=== PATIENT | male | born 1980 | race Caucasian/White ===

== ENCOUNTER 2016-12-08 10:01 | Emergency (ER) | payer OTHER ==
[2016-12-08 10:18] VITALS: BP 116/87; PULSE 79; RESP 16; TEMP 98.2; O2SAT 98
--- NOTE | 2016-12-08 10:25 | UCPHY ---
H & P Patient Type: Established Chief Complaint Nursing Narrative: BILAT EAR PAIN SINCE YEST, RECOVERING FROM COLD HPI/ROS: CHIEF COMPLAINT: Earache HISTORY OF PRESENT ILLNESS: 36-year-old male with a recent upper respiratory infection who reports bilateral earache, right worse than left. The pain was so severe in his right ear last night that he was unable to sleep. No drainage. No significant change in hearing. No fever. His upper respiratory infection has been present for the last 4 days. He has had mild cough, rhinorrhea, mild sore throat, and myalgias. REVIEW OF SYSTEMS: A ten point review of systems was performed and is negative with the exception of the items mentioned in the HPI. Source: Patient Exam Limitations: No limitations - Medical/Surgical History Hx Asthma: No Hx Chronic Respiratory Disease: No Hx Diabetes: No Hx Cardiac Disease: No Hx Renal Disease: No Hx Cirrhosis: No Hx Alcoholism: No Hx HIV/AIDS: No Hx Splenectomy or Spleen Trauma: No Other PMH: PMH: GOUT, SLEEP APNEA, DEPRESSION AND ANXIETY - Family History Significant Family History: No pertinent family hx - Social History Smoking Status: Never smoked Additional Social History: He works in [employer]. He does not use tobacco products. He rarely drinks alcohol. - Physical Exam Exam: General Appearance: Alert. Vital signs reviewed. Blood pressure 116/87. Eyes: Pupils equal and round, no conjunctival injection, no discharge. Anicteric. ENT, Mouth: No mastoid tenderness. Right tympanic membrane is erythematous and mildly bulging. Left tympanic membrane appears Mucous membranes are moist, no oropharyngeal erythema or edema. Neck: No lymphadenopathy, supple. normal. No meningeal signs. Respiratory: Lungs are clear to auscultation; no wheezes, rales, or rhonchi. Cardiovascular: Regular rate and rhythm; no murmur, rub, or gallop. Gastrointestinal: Abdomen is soft and nontender. Skin: Warm and dry, no rashes on exposed skin, normal color. Neurological: Alert and oriented. Moving all four extremities easily and equally. Psychiatric: Normal affect. Constitutional: Initial Vital Signs Temperature (C) 36.8 C 12/08/16 10:10 Heart Rate 79 12/08/16 10:10 Respiratory Rate 16 12/08/16 10:10 Blood Pressure 116/87 H 12/08/16 10:10 O2 Sat (%) 98 12/08/16 10:10 O2 Delivery Mode Room Air Allergies/Adverse Reactions: No Known Allergies Allergy (Verified 04/23/16 11:56) Home Medications: Medication Instructions Recorded Allopurinol 01/17/16 Colchicine 01/17/16 Amoxicillin 500 mg PO TID #21 capsule 12/08/16 Hydrocodone/APAP 5/325 [Dutton 1 - 2 tab PO Q4 PRN #10 tab 12/08/16 5/325 (RX)] Medical Decision Making ED Course/Re-evaluation: Right otitis media based on history and physical examination. He is being started on amoxicillin. Instructions about using Tylenol and Motrin in alternating doses were provided. He is also given a prescription for small quantity of Dutton to use for severe pain, as he was unable to sleep due to pain last night. There is no tympanic membrane perforation. He is not diabetic and I am not concerned about malignant otitis. No sign of otitis externa. Mastoid is nontender and I do not think that he has mastoiditis. This is not sinusitis as does not have sinus tenderness or sinus headache. Departure - Departure Disposition: Home, Routine, Self-Care Clinical Impression: Right otitis media Qualifiers: Otitis media type: suppurative Chronicity: acute Recurrence: not specified as recurrent Spontaneous tympanic membrane rupture: without spontaneous rupture Qualifier Code: (H66.001) Acute suppurative otitis media without spontaneous rupture of ear drum, right ear Condition: Good Instructions: Otitis Media (ED) Additional Instructions: Adult Pain & Fever Control: We recommend Acetaminophen (Tylenol) and Ibuprofen (Motrin,Advil) for pain and fever control. When fever is high or pain severe, both drugs can be used at the same time, but at different intervals. Please note the time differences. Your dose is: Acetaminophen 500mg every 4 to 6 hours Ibuprofen 400mg every 6 hours with food OR . Note: do not take Acetaminophen with Hydrocodone (Vicodin, Lortab) or Oycodone (Percocet). These medications also contain Acetaminophen. No more than 3000mg of Acetaminophen should be taken in 24 hours (for an adult). Use the Dutton if needed for severe pain. Remember that this is an opiate pain medication--you cannot drive or engage in other potentially dangerous activities when taking this medication. Also remember to watch your overall Tylenol intake. Take the amoxicillin as prescribed. Follow up with your primary care provider as needed. Referrals: Saloni Flynn, PAC [Primary Care Provider] - As per Instructions Prescriptions: Amoxicillin 500 mg PO TID #21 capsule Hydrocodone/APAP 5/325 [Dutton 5/325 (RX)] 1 - 2 tab PO Q4 PRN #10 tab PRN Reason: pain - PQRS PQRS Measurement: Does not apply.
== END 2016-12-08 10:41 | disposition home or self-care (01) ==
LOC: CED 10:01
DX: H66.001 Acute suppurative otitis media without spontaneous rupture of ear drum, right ear (principal); G47.30 Sleep apnea, unspecified
CPT/HCPCS: 99214-PO

== ENCOUNTER 2016-12-22 08:29 | Emergency (ER) | payer OTHER ==
[2016-12-22 08:53] VITALS: BP 141/67; PULSE 61; RESP 16; TEMP 98.6; O2SAT 96
--- NOTE | 2016-12-22 09:23 | UCPHY ---
H & P Time Seen by Provider: 12/22/16 08:50 Patient Type: Established HPI/ROS: 36-year-old male presents complaining of throat swelling, painful swallowing for for approximately 2 days. Review of systems As per HPI General no fever no chills no weakness HEENT no eye pain no eye discharge. No eye redness, positive sore throat Respiratory no cough, no shortness of breath Cardiac no chest pain, no peripheral edema GI no abdominal pain, no diarrhea, no constipation, no nausea, no vomiting no flank pain, no hematuria, no dysuria Musculoskeletal no myalgias, no joint pain Heme no easy bruising, no easy bleeding Endo no polyuria, no polydipsia Skin no rashes, no pruritus Neuro no syncope, no dizziness, no headaches Psych is no suicidal ideation, no homicidal ideation Past Medical/Surgical History: Gout Social History: Alcohol socially, denies drug use Has 3 young children Smoking Status: Never smoked Physical Exam: 36-year-old male Alert and oriented in no acute distress nontoxic appearance, afebrile Atraumatic normocephalic Extraocular muscles intact, anicteric Neck-supple, positive anterior cervical lymphadenopathy mildly tender to palpation Oropharynx positive enlarged tonsils, erythematous, no uvular deviation, no purulent exudate, tolerating own secretions, no trismus Lungs clear to auscultation bilaterally Heart regular rate and rhythm Abdomen normoactive bowel sounds soft nontender Extremities no cyanosis clubbing edema Skin no rash Constitutional: Initial Vital Signs Temperature (C) 37 C 12/22/16 08:50 Heart Rate 61 12/22/16 08:50 Respiratory Rate 16 12/22/16 08:50 Blood Pressure 141/67 H 12/22/16 08:50 O2 Sat (%) 96 12/22/16 08:50 O2 Delivery Mode Room Air Allergies/Adverse Reactions: No Known Allergies Allergy (Verified 04/23/16 11:56) Home Medications: Medication Instructions Recorded Allopurinol 01/17/16 Amoxicillin [Moxatag] 775 mg PO DAILY #10 tbmp.24hr 12/22/16 Medical Decision Making ED Course/Re-evaluation: Patient seen and evaluated for sore throat Rapid strep negative Physical exam consistent with strep positive anterior cervical lymphadenopathy positive erythematous tonsils with exudate and palatal petechiae Impression Acute pharyngitis Likely strep Plan Amoxicillin 775 p.o. q.day times 10 days - Data Points Laboratory Results: 12/22/16 12/22/16 Unknown 08:45 Group A Strep Screen NEGATIVE (NEGATIVE) Group A Strep DNA Pending Departure - Departure Disposition: Home, Routine, Self-Care Clinical Impression: Acute pharyngitis Condition: Good Instructions: Pharyngitis (ED) Referrals: [facility] [Provider Group] - As per Instructions Prescriptions: Amoxicillin [Moxatag] 775 mg PO DAILY #10 tbmp.24hr - PQRS PQRS Measurement: na
== END 2016-12-22 09:32 | disposition home or self-care (01) ==
LOC: CED 08:29
DX: J02.9 Acute pharyngitis, unspecified (principal)
CPT/HCPCS: 87880-PO; 99214-PO; G0463-PO